=== PATIENT | male | born 1980 ===

== ENCOUNTER 2020-02-20 05:31 | Emergency (ER) | payer OTHER ==
[~2020-02-20] VITALS: Ht 167.6 cm; Wt 95.3 kg
[2020-02-20 05:35] VITALS: Ht 167.6 cm; Wt 95.3 kg
[2020-02-20 07:07] VITALS: BP 145/94
== END 2020-02-20 07:07 | disposition home or self-care (01) ==
LOC: ED 05:31
DX: Z02.89 Encounter for other administrative examinations (principal)